=== PATIENT | male | born 1985 | race Caucasian/White ===

== ENCOUNTER → 2017-09-01 14:31 | Outpatient (CLI) | payer BC, SELFPAY ==
--- NOTE | 2017-09-01 | DI.RAD.S_ITS ---
PROCEDURE: XR KNEE LT 3V INDICATIONS: LEFT KNEE PAIN TECHNIQUE: 3 views of the knee were acquired. COMPARISON: None. FINDINGS: Bones: No fractures or dislocations. No suspicious bony lesions. Soft tissues: No joint effusion. No suspicious soft tissue calcifications. IMPRESSION: Normal knee Dictated by: Federcio Benson M.D. on 09/01/2017 at 14:55 Approved by: Federico Benson M.D. on 09/01/2017 at 14:56
== END ==
PROVIDERS: Visit Provider Family Medicine
DX: M25.562 Pain in left knee (principal)
CPT/HCPCS: 73562

== ENCOUNTER → 2018-07-14 13:38 | Outpatient (CLI) | payer BC, SELFPAY ==
[2018-07-14 14:10] LABS: Alanine Aminotransferase 34 IU/L (21-72); Albumin 4.5 g/dL (3.5-5.0); Albumin Globulin Ratio 1.5 (1.0-2.8); Alkaline Phosphatase 55 U/L (38-126); Amylase 59 U/L (30-110); Aspartate Aminotransferase 28 IU/L (17-59); Bilirubin Total 0.6 mg/dL (0.2-1.3); Blood Urea Nitrogen 11 mg/dL (9-20); Calcium 9.1 mg/dL (8.4-10.2); Carbon Dioxide 25 mmol/L (22-32); Chloride 104 mmol/L (98-107); Estimated Glomerular Filt Rate > 60.0 mL/min (>60); Glucose 113 mg/dL (70-100); HEMOLYSIS < 15 (0-50); Lipase 107 U/L (23-300); Potassium 3.8 mmol/L (3.4-5.1); Sodium 140 mmol/L (137-145); Total Protein 7.5 g/dL (6.3-8.2)
[2018-07-14 14:11] LABS: C-Reactive Protein Quant < 0.5 mg/dL (<1.0)
[2018-07-14 14:20] LABS: Add Manual Diff / Slide Review NO; Basophils Absolute Auto 0 /uL (0-100); Basophils Percent Auto 0.7 % (0-2); Eosinophils Absolute Auto 100 /uL (0-450); Hematocrit 43.2 % (41-53); Lymphocytes Absolute Auto 1700 /uL (1100-4500); Mean Corpuscular HGB Conc 34.6 % (30-36); Mean Corpuscular Hemoglobin 29.2 PG (26-34); Mean Corpuscular Volume 84.3 fL (80-100); Monocytes Absolute Auto 400 /uL (0-900); Monocytes Percent Auto 5.4 % (3-14); Neutrophils Absolute Auto 4400 /uL (1500-7000); Neutrophils Percent Auto 66.9 % (50-75); Red Blood Cell Count 5.13 X10^6/uL (4.5-5.9); Red Cell Distribution Width 13.3 % (11.6-14.8); White Blood Cell Count 6.6 X10^3/uL (4.5-11.0)
[2018-07-14 14:48] LABS: Platelet Count 156 X10^3/uL (150-400)
[2018-07-14 14:50] LABS: Erythrocyte Sedimentation Rate 2 MM/HR (0-15)
== END ==
PROVIDERS: PCP Family Medicine; Visit Provider Family Medicine
DX: R10.9 Unspecified abdominal pain (principal)
CPT/HCPCS: 36415; 80053; 82150; 83690; 85025; 85651; 86140

== ENCOUNTER 2018-07-16 02:49 | Emergency (ER) | payer BC, SELFPAY ==
[2018-07-16 02:58] VITALS: BP 151/106; PULSE 56; RESP 18; TEMP 36.1; O2SAT 100
[2018-07-16 03:00] VITALS: BP 151/106; PULSE 61; RESP 18; TEMP 36.1; O2SAT 100; BMI 30.3
--- NOTE | 2018-07-16 03:31 | DI.CT.S_ITS ---
PROCEDURE: CT ABDOMEN PELVIS W CON INDICATIONS: abdominal pain TECHNIQUE: After the administration of intravenous contrast, 5 mm thick sections acquired from the diaphragm to the symphysis. 5 mm coronal and sagittal reformats were acquired. For radiation dose reduction, the following was used: automated exposure control, adjustment of mA and/or kV according to patient size. COMPARISON: [facility], CT, CT ABD PELVIS W CON, 01/10/2015, 13:30. FINDINGS: Image quality: Excellent. ABDOMEN: Lung bases: Lung bases are clear. Heart size is normal. Solid organs: There are a few small scattered subcentimeter hypodensities within the right hepatic lobe, new since the prior examination. Liver is otherwise normal in size and enhancement. Gallbladder is within normal limits. Biliary system is non dilated. Pancreas enhances normally. Spleen is normal in size and enhancement. No adrenal nodules. Kidneys demonstrate normal size and enhancement, without hydronephrosis. Peritoneum and bowel: There is mild thickening of a short segment of proximal transverse colon. Bowel loops demonstrate otherwise normal wall thickness and caliber. No free fluid or air. Normal appendix. Nodes and vessels: No retroperitoneal or mesenteric adenopathy by size criteria. Aorta and inferior vena cava are normal in size. Miscellaneous: No ventral hernias. PELVIS: Genitourinary: Bladder wall thickness is normal. Miscellaneous: No inguinal hernias or adenopathy. Bones: No suspicious bony lesions. No vertebral body compression fractures. IMPRESSION: 1. Limited examination of the bowel secondary to lack of oral contrast. 2. Possible thickening of a short segment proximal transverse colon. This could be further assessed with colonoscopy, if clinically indicated. 3. New small subcentimeter hypodensities within the hepatic parenchyma, which could be further assessed with ultrasound if clinically indicated. 4. Normal appendix. 5. Concordant with preliminary interpretation. Dictated by: Oziel Alfredo M.D. on 07/16/2018 at 8:08 Approved by: Oziel Alfredo M.D. on 07/16/2018 at 8:12
--- NOTE | 2018-07-16 03:34 | ED_ITS ---
HPI - Abdominal Pain General Chief Complaint: Abdominal Pain Stated Complaint: extreme stomach pain, bloated, back pain 3 days Time Seen by Provider: 07/16/18 03:02 Source: patient Mode of arrival: ambulatory Limitations: no limitations History of Present Illness HPI narrative: Patient presents the emergency department complaining of periumbilical abdominal pain that has been worsening for the last 4 days. Patient states initially, he had mild pain and some soft stools, but that the pain has persisted, and seems worse over the last day. Patient states his pain is about a 7/10. Nothing makes better. Patient states he is also having watery diarrhea and nausea. He states he has not vomited yet. He has been able to eat somewhat, but his appetite has been decreased. He states that if he eats simple starchy things, like saltines or rice crackers, this does not seem to bother his stomach. However, any other food makes his pain worse. Patient states that initially, ibuprofen was helping, but when he saw his doctor the day before yesterday, his doctor said not to take ibuprofen because it may irritate his stomach. The patient states he stopped taking the ibuprofen, and the pain seemed to get worse. He tried taking omeprazole, but this did not help. Patient states that he has a history of IBS, but otherwise, has no other chronic abdominal conditions. He states he had an umbilical hernia years ago. He has not had his gallbladder or appendix removed. He has no history of ulcers or other bowel conditions. Patient denies any urinary complaints. he denies any fevers or headache. No chills. No chest pain shortness of breath or cough. Patient states he is otherwise healthy. No recent travel. No camping. No sick contacts. No suspicious food. No other complaints at this time. No recent antibiotics within the last month. Related Data Home Medications Medication Instructions Recorded Confirmed hydrocodone-acetaminophen 0 tab PO Q6HP PRN 07/16/18 07/16/18 Previous Rx's Medication Instructions Recorded cyclobenzaprine 10 mg PO TIDP PRN #14 tab 11/17/15 ibuprofen 600 mg PO Q8HP PRN #20 tab 11/17/15 ondansetron 4 mg PO QID PRN #14 tab 07/16/18 oxycodone-acetaminophen 1 tab PO Q4-6H PRN #7 tab 04/01/19 Allergies Allergy/AdvReac Type Severity Reaction Status Date / Time amoxicillin [AMOXICILLIN] Allergy Mild RASH Verified 07/16/18 03:22 cephalexin [CEPHALEXIN] Allergy Mild RASH Verified 07/16/18 03:22 Penicillins [PENICILLINS] Allergy Mild Verified 07/16/18 03:22 Sulfa (Sulfonamide Allergy Mild Verified 07/16/18 03:22 Antibiotics) [SULFA (SULFONAMIDE ANTIBIOTICS)] Review of Systems Constitutional Denies chills, Denies fever(s), Denies lethargy and Denies weakness Eyes Denies change in vision, Denies eye discharge, Denies irritation and Denies loss of vision ENT Ears, Nose, Mouth, and Throat: Denies change in voice, Denies neck pain and Denies sore throat Cardiovascular Denies chest pain, Denies irregular heart rhythm, Denies lightheadedness, Denies palpitations, Denies dyspnea, Denies dyspnea on exertion and Denies orthopnea Respiratory Denies cough, Denies dyspnea, Denies dyspnea on exertion and Denies wheezing Gastrointestinal Gastrointestinal: Reports abdominal pain, Reports diarrhea, Reports nausea and Denies vomiting Genitourinary Denies hematuria, Denies flank pain, Denies urinary incontinence and Denies urinary urgency Musculoskeletal Denies neck pain Integumentary/Breasts Denies pruritus, Denies erythema, Denies rash and Denies wounds Neurologic Denies confusion, Denies loss of vision and Denies weakness Psychiatric Denies anxiety, Denies confusion, Denies depression, Denies homicidal ideation and Denies suicidal ideation Endocrine Denies palpitations Hematologic/Lymphatic Denies easy bruising Allergic/Immunologic Denies wheezing [facility] Medical History Healthy adult (Acute) Surgical History Status post tonsillectomy and adenoidectomy Social History Smoking Status: Never smoker Social History Smoking Status: Never smoker Exam Initial Vital Signs Initial Vital Signs: Vital Signs Temperature 97.0 F L 07/16/18 02:58 Pulse Rate 56 L 07/16/18 02:58 Respiratory Rate 18 07/16/18 02:58 Blood Pressure 151/106 H 07/16/18 02:58 Pulse Oximetry 100 07/16/18 02:58 Const General: cooperative and well developed Nutritional Appearance: well nourished Orientation: alert, awake, oriented x3 and not confused [facility] Head: normocephalic and atraumatic Ears: external ears normal Nose: external nose normal and No nasal discharge Face and sinus: face symmetric and No dry mucous membranes Mouth: oral mucosae normal and moist mucous membranes Teeth and gingiva: dentition normal Eyes General: appearance normal, both eyes and all related structures Eyelids: eyelids normal Conjunctivae: conjunctivae normal Sclera: sclerae normal Pupils: PERRL EOM: EOM intact bilaterally Neck Neck: normal visual inspection, trachea midline, No lymphadenopathy, No midline deformity and No JVD Lymphatic: No lymphedema Chest Chest: normal inspection of the chest Resp Effort & Inspection: normal respiratory effort, able to speak in complete sentences, no respiratory distress and no use of accessory muscles Auscultation: clear to auscultation bilaterally, no rales, no rhonchi and no wheezes Cardio Rate: regular rate Rhythm: regular rhythm Heart Sounds: no click, no gallops, no murmurs and no rubs Pulses: normal peripheral pulses GI Inspection: non-distended Palpation: soft, no hepatosplenomegaly, No guarding, No pulsatile mass and tender Auscultation: normal bowel sounds Other: Patient has diffuse abdominal tenderness, mildly worse in the lower abdo men than the upper, with a focus of tenderness in the superior epigastric area. No flank tenderness. pain is not worse on 1 side than the other. Back/Spine/Pelvis Back: No CVA tenderness Cervical Spine: cervical ROM normal and No pain with cervical ROM Thoracic/Lumbar Spine: thoracic and lumbar spine normal to inspection Skin General: no rashes or lesions noted, No jaundice and No petechiae Neuro General: alert, oriented x3, gait normal and no focal motor deficits Speech: speech normal Extrem General: full ROM, no clubbing, cyanosis or edema, no pedal edema and no calf tenderness Psych Appearance: well kempt Mental Status: mental status grossly normal Attitude: cooperative Thought Content: normal and suicidality Judgment: judgment good Course Course Narrative: I reviewed the patient's labs from 2 days ago, which revealed a normal white blood cell count and normal lipase. Labs overall were unremarkable. the patient was calm, but did appear somewhat uncomfortable, and I treated him symptomatically with IV fluids, Zofran, and Dilaudid. I repeated his CBC and lipase, and obtained a CT scan of the abdomen and pelvis. CBC continued to show a normal white blood cell count, and lipase also was unchanged from patient's most recent value. His CT scan showed a very focal area which probably represented a small area of colitis, but was otherwise unremarkable. I discussed these findings with the patient and his mother, who had accompanied him. At this point, the patient's symptoms are most likely viral in nature, but with his underlying IBS, he may be prone to more severe symptoms. We have dis cussed home management of the symptoms. Patient is stable for discharge home at this time. We have discussed the usual indications for return. Orders Ordered: Discontinued Medications Hydromorphone HCl (Dilaudid) 1 mg IV NOW ONE Stop: 07/16/18 03:33 Last Admin: 07/16/18 03:47 Dose: 1 mg Hydromorphone HCl (Dilaudid) 0.5 mg IV NOW ONE Stop: 07/16/18 05:27 Last Admin: 07/16/18 05:32 Dose: 0.5 mg Hydromorphone HCl (Dilaudid) 0.5 mg IV NOW ONE Stop: 07/16/18 05:29 Last Admin: 07/16/18 05:31 Dose: Not Given Sodium Chloride (Normal Saline 0.9%) 1,000 mls @ 1,000 mls/hr IV BOLUS ONE Stop: 07/16/18 04:30 Last Infusion: 07/16/18 05:05 Dose: 0 mls/hr Admin: 07/16/18 03:46 Dose: 1,000 mls/hr Ondansetron HCl (Zofran) 4 mg IV NOW ONE Stop: 07/16/18 03:32 Last Admin: 07/16/18 03:47 Dose: 4 mg Ondansetron HCl (Zofran) 4 mg IV NOW ONE Stop: 07/16/18 05:27 Last Admin: 07/16/18 05:32 Dose: 4 mg Ondansetron HCl (Zofran) 4 mg IV NOW ONE Stop: 07/16/18 05:29 Last Admin: 07/16/18 05:31 Dose: Not Given Pantoprazole Sodium (Protonix) 40 mg IV NOW ONE Stop: 07/16/18 03:33 Last Admin: 07/16/18 03:47 Dose: 40 mg Vital Signs - 8 hr 07/16/18 02:58 07/16/18 03:00 Temperature 97.0 F L 97.0 F L Pulse Rate 56 L 61 Respiratory Rate 18 18 Blood Pressure 151/106 H Blood Pressure [Left Arm] 151/106 H Pulse Oximetry 100 100 MDM - Abdominal Pain Medical Records Attestation: I reviewed the patient's medical records. Lab Data Attestation: I reviewed the patient's lab results. Result diagrams: 07/16/18 03:03 Lab Results 07/16/18 07/16/18 Range/Units 03:03 03:03 WBC 7.1 (4.5-11.0) X10^3/uL RBC 5.32 (4.5-5.9) X10^6/uL Hgb 15.3 (13.5-17.5) g/dL Hct 45.6 (41-53) % MCV 85.8 (80-100) fL MCH 28.8 (26-34) PG MCHC 33.6 (30-36) % RDW 13.1 (11.6-14.8) % Plt Count 169 (150-400) X10^3/uL Neut % (Auto) 61.9 (50-75) % Lymph % (Auto) 29.0 (25-40) % [place] % (Auto) 7.1 (3-14) % Eos % (Auto) 1.4 L (2-4) % Baso % (Auto) 0.6 (0-2) % Neut # (Auto) 4400 (8331-5370) /uL Lymph # (Auto) 2100 (2525-1481) /uL [place] # (Auto) 500 (0-900) /uL Eos # (Auto) 100 (0-450) /uL Baso # (Auto) 0 (0-100) /uL Lipase 107 (23-300) U/L Point of care testing: Urine Dip Bedside Urine Glucose Negative Bedside Urine Bilirubin - Negative Bedside Urine Ketone - Negative Urine Specific [place] 1.025 Bedside Urine Occult Blood - Negative Bedside Urine pH 6.0 Bedside Urine Protein - Negative Bedside Urine Urobilinogen +/- 1mg Bedside Urine Nitrite - Negative Bedside Urine Leukocytes - Negative Esterase Discharge Plan Departure Patient Disposition: Home Clinical Impression: Gastroenteritis Abdominal pain Qualifiers: Abdominal location: lower abdomen, unspecified Qualified Code(s): R10.30 - Lower abdominal pain, unspecified Discharge Date/Time: 07/16/18 05:52 Interventions: ED Discharge Assessment Last Done: 07/16/18 06:06 Instructions: DI for Viral Gastroenteritis -- Adult, DI for Abdominal Pain- Adult Activity Restrictions/Additional Instructions: Your labs continued to look good tonight. Your CT scan shows a very small, focal area of inflammation in your large intestine, which likely represents some irritation from the viral infection. This illness will have to run its course, which it will do. You may follow up with your doctor if you have any further issues after the primary illness is over. You may take medication for nausea, as prescribed, to help with the symptoms. Prescriptions: New ondansetron 4 mg tablet,disintegrating 4 mg PO QID PRN (Reason: nausea and vomiting) Qty: 14 RF: 0 oxycodone-acetaminophen 5-325 mg tablet 1 tab PO Q4-6H PRN (Reason: pain) Qty: 7 RF: 0 No Action cyclobenzaprine 10 MG tablet 10 mg PO TIDP PRNQty: 14 RF: 0 ibuprofen 600 MG tablet 600 mg PO Q8HP PRNQty: 20 RF: 0 hydrocodone-acetaminophen 5 MG/325 MG tablet PO Q6HP PRN (Reason: Pain (Scale Score 1-3)) RF: 0 Referrals: Gavin Boateng MD [Primary Care Provider] -
[2018-07-16 03:37] LABS: Add Manual Diff / Slide Review NO; Basophils Absolute Auto 0 /uL (0-100); Basophils Percent Auto 0.6 % (0-2); Eosinophils Absolute Auto 100 /uL (0-450); Eosinophils Percent Auto 1.4 % (2-4); Hematocrit 45.6 % (41-53); Hemoglobin 15.3 g/dL (13.5-17.5); Lymphocytes Absolute Auto 2100 /uL (1100-4500); Mean Corpuscular HGB Conc 33.6 % (30-36); Mean Corpuscular Hemoglobin 28.8 PG (26-34); Mean Corpuscular Volume 85.8 fL (80-100); Monocytes Absolute Auto 500 /uL (0-900); Monocytes Percent Auto 7.1 % (3-14); Neutrophils Absolute Auto 4400 /uL (1500-7000); Neutrophils Percent Auto 61.9 % (50-75); Platelet Count 169 X10^3/uL (150-400); Red Blood Cell Count 5.32 X10^6/uL (4.5-5.9); Red Cell Distribution Width 13.1 % (11.6-14.8); White Blood Cell Count 7.1 X10^3/uL (4.5-11.0)
[2018-07-16 03:42] LABS: Lipase 107 U/L (23-300)
[2018-07-16] MEDS: SODIUM CHLORIDE 0.9% 1,000 ML 1000 ML IV (03:46)
[2018-07-16] MEDS: HYDROMORPHONE 1 MG INJ IV (03:47)
[2018-07-16] MEDS: PANTOPRAZOLE 40 MG VIAL IV (03:47)
[2018-07-16] MEDS: ONDANSETRON 4 MG/2 ML INJ IV ×2 (03:47→05:32)
[2018-07-16 04:32] VITALS: BP 115/55; PULSE 56; RESP 18; O2SAT 98
[2018-07-16] MEDS: HYDROMORPHONE 1 MG INJ 0.5 MG IV (05:32)
[2018-07-16 05:39] VITALS: BP 127/73; PULSE 56; RESP 16; O2SAT 100
== END 2018-07-16 05:52 | disposition home or self-care (01) ==
PROVIDERS: Emergency Provider Emergency Medicine; PCP Family Medicine
DX: K52.9 Noninfective gastroenteritis and colitis, unspecified (principal)
CPT/HCPCS: 36591; 74177; 81003; 83690; 85025; 96361; 96374; 96375; 96376; 99283; 99284; C9113; J1170; J2405; Q9967

== ENCOUNTER → 2018-07-18 08:17 | Outpatient (CLI) | payer BC, SELFPAY ==
--- NOTE | 2018-07-18 | DI.US.S_ITS ---
PROCEDURE: US ABDOMEN COMPLETE INDICATIONS: LIVER MASS TECHNIQUE: Real-time scanning was performed of the abdominal and retroperitoneal organs, with image documentation. COMPARISON: [facility], CT, CT ABDOMEN PELVIS W CON, 07/16/2018, 4:07. FINDINGS: Liver: Echogenic focal masses seen within the anterior right hepatic lobe measured 1.4 x 1.0 x 1.1 cm and 1.6 x 0.8 x 0.9 cm. No definite internal vascularity is seen Gallbladder: Unremarkable. No sonographic Kohli sign Biliary ducts: Intrahepatic bile ducts are non-dilated. Extrahepatic bile duct caliber measures 4-5 mm. Normal is 6-7 mm or less in diameter, or 10 mm or less post-cholecystectomy. Pancreas: Not well seen sonographically due to shadowing bowel gas Spleen: Spleen measures 11.1 cm. There is heterogeneous echotexture however no discrete splenic lesion. Kidneys: Kidneys are normal in size and echotexture. Right kidney measures 9.6 cm long; left kidney measures 10.8 cm long. No hydronephrosis or nephrolithiasis. No solid masses. Aorta: Visualized aorta is normal in caliber at less than 3 cm. Iliacs: Proximal common iliac arteries are normal in caliber at less than 2.5 cm. IVC: Intrahepatic inferior vena cava is patent. Miscellaneous: No free abdominal fluid. IMPRESSION: Focal echogenic regions seen within the right hepatic lobe. Findings could represent areas of focal fatty infiltration or poorly-defined hemangiomas based on the echogenic characteristics. Although, the findings are still nonspecific and recommend continued surveillance with 6 month interval repeat ultrasound to document long-term stability (for least 2 years) and exclude malignant possibilities. If there is sufficient clinical suspicion, additional evaluation with dedicated hepatic protocol MRI with and without contrast could be considered. Dictated by: Guille Vela M.D. on 07/18/2018 at 9:57 Approved by: Guille Vela M.D. on 07/18/2018 at 10:04
== END ==
PROVIDERS: PCP Family Medicine; Visit Provider Family Medicine
DX: R16.0 Hepatomegaly, not elsewhere classified (principal)
CPT/HCPCS: 76700

== ENCOUNTER → 2019-06-12 14:28 | Outpatient (CLI) | payer BC, SELFPAY ==
--- NOTE | 2019-06-12 | DI.US.S_ITS ---
PROCEDURE: US ABDOMEN COMPLETE INDICATIONS: LIVER MASS TECHNIQUE: Real-time scanning was performed of the abdominal and retroperitoneal organs, with image documentation. COMPARISON: [facility], CT, CT ABDOMEN PELVIS W CON, 07/16/2018, 4:07. [facility], US, US ABDOMEN COMPLETE, 07/18/2018, 8:24. FINDINGS: Liver: Liver is normal in size and unchanged in echotexture. There has been a previously identified hyperechoic focus within the right hepatic lobe anteriorly with a second immediately adjacent similar hyperechoic focus, again seen with reference to the prior study from 07/18/18. These measure 1.5 x 1.2 x 0.8 cm anteriorly and 1.5 x 0.7 x 1.2 cm more posteriorly. By appearance these most likely are hemangiomas. Gallbladder: The gallbladder appears normal Biliary ducts: Intrahepatic bile ducts are non-dilated. Extrahepatic bile duct caliber measures 3.6.0 mm. Normal is 6-7 mm or less in diameter, or 10 mm or less post-cholecystectomy. Pancreas: Visualized portions of the pancreas are sonographically normal. Spleen: Spleen is normal in size and homogeneous in echotexture. Kidneys: Kidneys are normal in size and echotexture. Right kidney measures 10.0 cm long; left kidney measures 9.5 x 10.0 cmr nephrolithiasis. No solid masses. Aorta: Visualized aorta is normal in caliber at less than 3 cm. Iliacs: Proximal common iliac arteries are normal in caliber at less than 2.5 cm. IVC: Intrahepatic inferior vena cava is patent. Miscellaneous: No free abdominal fluid. IMPRESSION: 2 adjacent hyperechoic foci within the liver parenchyma near the gallbladder fossa margin are again seen, unchanged in size or morphology from 07/18/18. These presumably represent hemangiomas and given the absence of international exchange coordinator time no additional followup would appear necessary. Dictated by: Fidencio Fall M.D. on 06/12/2019 at 15:59 Approved by: Fidencio Fall M.D. on 06/12/2019 at 16:04
== END ==
PROVIDERS: PCP Family Medicine; Referring Provider Family Medicine; Visit Provider Family Medicine
DX: R16.0 Hepatomegaly, not elsewhere classified (principal)
CPT/HCPCS: 76700

== ENCOUNTER → 2021-10-19 12:24 | Outpatient (ROUT) | payer SELFPAY ==
[2021-10-19 13:39] LABS: COVID-19 CEPHEID PCR (VTM/NP) Negative (Negative)
== END ==
PROVIDERS: PCP Family Medicine; Visit Provider Family Medicine
DX: J02.9 Acute pharyngitis, unspecified (principal); Z20.822 Contact with and (suspected) exposure to COVID-19
CPT/HCPCS: U0003; U0005

== ENCOUNTER 2022-07-30 20:03 | Emergency (ER) | payer OTHER, SELFPAY ==
[2022-07-30 20:14] VITALS: BP 131/80; PULSE 63; RESP 20; TEMP 36.7; O2SAT 99; BMI 31.9
--- NOTE | 2022-07-30 20:34 | DI.CT.S_ITS ---
PROCEDURE: CT ANGIO CHEST ABDOMEN PELVIS INDICATIONS: abd pain pericumbilical, RLQ, passed out x 2 last night TECHNIQUE: Precontrast 5 mm thick sections acquired from the lung apices to the iliac crests. After the administration of intravenous contrast, 2.5 mm thick sections again acquired from the lung apices to the iliac crests. Maximum intensity projection (MIP) oblique sagittal and coronal reformats were then acquired. For radiation dose reduction, the following was used: automated exposure control. COMPARISON: None. FINDINGS: Image quality: Excellent. AORTA: Intramural hematoma: Absent Maximum hematoma thickness: Not applicable. Focal contrast enhancement: Intramural blood pool (< 2 mm neck or imperceptible communication with aortic lumen): Absent . Ulcer-like projection (broad communication with aortic lumen > 3 mm): Absent . Dissection: Absent Viktor classification: Not applicable Maximum aortic diameter: Normal caliber Periaortic hematoma: Absent . CHEST: Lungs and pleura: No acute airspace opacities. No pleural effusions or pneumothorax. Central and peripheral airways are patent and normal in caliber. No pulmonary embolus found. Mediastinum: Heart size is normal. No pericardial effusion. No mediastinal or hilar adenopathy by size criteria. Central pulmonary arteries are normal in size. Esophagus is normal in caliber. No hiatal hernias. Bones and chest wall: No axillary adenopathy by size criteria. Thyroid gland normal . No suspicious bony lesions. No vertebral body compression fractures. ABDOMEN: Vasculature: Celiac trunk and mesenteric arteries are patent. Renal arteries are also patent. Solid organs: Liver is normal in size and enhancement. Gallbladder normal . Biliary system is non dilated. Pancreas enhances normally. Spleen is normal in size and enhancement. No adrenal nodules. Both kidneys are normal in size and enhancement, without hydronephrosis. Peritoneum and bowel: No free fluid or air. Bowel loops are normal in caliber and wall thickness. Nodes and vessels: No retroperitoneal or mesenteric adenopathy by size criteria. Inferior vena cava is normal in morphology. Miscellaneous: No ventral hernias. PELVIS: Genitourinary: Bladder wall thickness is normal. Miscellaneous: No inguinal hernias or adenopathy. No ventral hernias. Normal appendix found right lower quadrant. Bones: No suspicious bony lesions. No vertebral body compression fractures. IMPRESSION: No aneurysm or dissection found, normal aortic caliber and enhancement. No evidence of pulmonary embolus. Normal appendix found. Dictated by: Fidencio Fall M.D. on 07/30/2022 at 21:42 Approved by: Fidencio Fall M.D. on 07/30/2022 at 21:46
--- NOTE | 2022-07-30 20:37 | ED.ABDPAIN ---
HPI - Abdominal Pain General Chief Complaint: Abdominal Pain Stated Complaint: faint, SOB-uncon. last night, abd pain Time Seen by Provider: 07/30/22 20:27 Source: patient and family Mode of arrival: Wheelchair Limitations: no limitations History of Present Illness HPI narrative: This is a 37-year-old male with history of vasectomy, umbilical hernia repair and colonoscopy x2 who presents with abdominal pain. Patient states pain has been present starting yesterday around midnight. He states it is umbilical and then radiates little bit to the right lower quadrant. He states he felt feverish and chilled. He is had nausea and vomiting. He is had quite a bit of watery diarrhea in the last 12-24 hours. Patient states no black or bloody stools. No testicular pain. No dysuria, urgency or frequency. He states he is not having any back or flank pain. It all seems to be in the front of his abdomen. He denies any bruising or skin changes. Pain does not radiate down his legs. No numbness, tingling or weakness. Notes that he passed out last night. He states that he was throwing up in the bathroom he remembers being in the proper position to throw up and then his waking him up on the floor. states he was in the bathroom for about 2 hours when she went to go find. Patient notes he has had abdominal pain past, he states it is felt somewhat similar but not quite as intense. He does not normally have vomiting or diarrhea with it. Has had rectal bleeding in the past and had colonoscopy x2 which were both negative and was told he might have IBS. He does not take any daily medicines. Patient has allergies to antibiotics including penicillin and sulfa which he describes as swelling and rash. He denies tobacco, occasional alcohol, no illicit. Dr. Boateng is his primary care. Related Data Home Medications Medication Instructions Recorded Confirmed hydrocodone 5 mg-acetaminophen 325 0 tab PO Q6HP PRN Pain (Scale 07/16/18 07/16/18 mg tablet Score 1-3) Previous Rx's Medication Instructions Recorded cyclobenzaprine 10 mg tablet 10 mg PO TIDP PRN #14 tabs 11/17/15 ibuprofen 600 mg tablet 600 mg PO Q8HP PRN #20 tabs 11/17/15 ondansetron 4 mg disintegrating 4 mg PO QID PRN nausea and 07/16/18 tablet vomiting #14 tabs oxycodone-acetaminophen 5 mg-325 1 tab PO Q4-6H PRN pain #7 tabs 07/16/18 mg tablet Allergies Allergy/AdvReac Type Severity Reaction Status Date / Time amoxicillin [AMOXICILLIN] Allergy Mild RASH Verified 07/16/18 03:22 cephalexin [CEPHALEXIN] Allergy Mild RASH Verified 07/16/18 03:22 Penicillins [PENICILLINS] Allergy Mild Verified 07/16/18 03:22 Sulfa (Sulfonamide Allergy Mild Verified 07/16/18 03:22 Antibiotics) [SULFA (SULFONAMIDE ANTIBIOTICS)] Review of Systems Review of Systems ROS Unobtainable: All systems reviewed & are unremarkable except as noted in HPI and below Patient History Medical History (Updated 07/30/22 @ 23:42 by Vashti Maddox DO) Healthy adult Surgical History Status post tonsillectomy and adenoidectomy Social History Smoking Status: Never smoker Smoking Status: Never smoker alcohol intake frequency: holidays/special occasions only Substance Use Type: does not use Exam Narrative Exam Narrative: GENERAL: Alert and oriented x three, obese male in moderate distress. HEENT: Head normocephalic, atraumatic, EOMI, pupils reactive, face symmetric, moist mucous membranes NECK: Supple, full range of motion CARDIOVASCULAR: Regular rate and rhythm without murmurs, rubs or gallops. RESPIRATORY: Breath sounds equal bilaterally, no wheezes rales or rhonchi. No tachypnea or accessory muscle use. ABDOMEN: Soft, positive for periumbilical and right lower quadrant tenderness. Hyperactive bowel sounds all 4 quadrants. No guarding or rebound, rigidity, no mass, no bruit or pulsatile mass. : No CVA tenderness EXTREMITIES: Normal range of motion, no clubbing or edema. Neurovascularly intact. Patient has 2+ posterior tibialis bilaterally, cap refill less than 2 seconds bilaterally. NEUROLOGICAL: Cranial nerves II through XII grossly intact. Moving all extremities SKIN: Warm, dry, no petechiae, no rashes or lesions, no ecchymosis. Initial Vital Signs Initial Vital Signs: Vital Signs Temperature 98.0 F 07/30/22 20:14 Pulse Rate 63 07/30/22 20:14 Respiratory Rate 20 07/30/22 20:14 Blood Pressure 131/80 07/30/22 20:14 Pulse Oximetry 99 07/30/22 20:14 Oxygen Delivery Method Room Air 07/30/22 20:14 Course Orders Ordered: ED Orders 07/30/22 20:15 Complete Blood Count AUTO DIFF Stat Comprehensive Metabolic Panel Stat Lactate (Lactic Acid) Stat Lipase Stat Troponin & CK Cardiac Panel Stat 07/30/22 20:34 CT angio chest abdomen pelvis Stat EKG-12 Lead Stat 07/30/22 21:35 Urinalysis and Microscopic Stat 07/30/22 22:13 GI Panel (Film Array) Stat Discontinued Medications Hydromorphone HCl (Hydromorphone 0.5 Mg Inj) 0.5 mg IV NOW ONE Stop: 07/30/22 22:16 Last Admin: 07/30/22 22:19 Dose: 0.5 mg Documented By: JOHN Sodium Chloride (Normal Saline 0.9%) 1,000 mls @ 1,000 mls/hr IV BOLUS ONE Stop: 07/30/22 21:35 Last Infusion: 07/30/22 22:08 Dose: 0 mls/hr Documented By: Admin: 07/30/22 21:14 Dose: 1,000 mls/hr Documented By: JOHN Sodium Chloride (Normal Saline 0.9%) 1,000 mls @ 1,000 mls/hr IV BOLUS ONE Stop: 07/30/22 23:14 Last Infusion: 07/30/22 22:48 Dose: 0 mls/hr Documented By: Admin: 07/30/22 22:20 Dose: 1,000 mls/hr Documented By: JOHN Morphine Sulfate (Morphine 4 Mg/Ml Inj) 4 mg IV NOW ONE Stop: 07/30/22 20:35 Last Admin: 07/30/22 20:43 Dose: 4 mg Documented By: JOHN Morphine Sulfate (Morphine 4 Mg/Ml Inj) 4 mg IV NOW ONE Stop: 07/30/22 22:36 Last Admin: 07/30/22 22:44 Dose: 4 mg Documented By: JOHN Ondansetron HCl (Ondansetron 4 Mg/2 Ml Inj) 4 mg IV NOW PRN PRN Reason: Nausea And Vomiting Ondansetron HCl (Ondansetron 4 Mg/2 Ml Inj) 4 mg IV NOW ONE Stop: 07/30/22 20:35 Last Admin: 07/30/22 20:44 Dose: 4 mg Documented By: JOHN Ondansetron HCl (Ondansetron 4 Mg Odt Prepack) 1 bottle MISC SEEINSTR ONE Stop: 07/30/22 23:59 Last Admin: 07/31/22 00:07 Dose: 1 bottle Documented By: JOHN Oxycodone/Acetaminophen (Oxycodone/Apap 5/325 Prepack) 1 bottle MISC SEEINSTR ONE Stop: 07/30/22 23:59 Last Admin: 07/31/22 00:07 Dose: 1 bottle Documented By: JOHN Vital Signs Vital signs: Vital Signs - 8 hr 07/30/22 20:14 07/31/22 00:14 Temperature 98.0 F Pulse Rate 63 59 L Respiratory Rate 20 18 Blood Pressure 131/80 126/76 Pulse Oximetry 99 96 Oxygen Delivery Method Room Air Room Air MDM - Abdominal Pain Lab Data 07/30/22 20:15 07/30/22 20:15 Labs: Lab Results 07/30/22 07/30/22 07/30/22 Range/Units 20:15 20:15 20:15 WBC 12.2 H (4.5-11.0) X10^3/uL RBC 5.70 (4.5-5.9) X10^6/uL Hgb 16.6 (13.5-17.5) g/dL Hct 47.9 (41-53) % MCV 84.1 (80-100) fL MCH 29.0 (26-34) PG MCHC 34.5 (30-36) % RDW 13.3 (11.6-14.8) % Plt Count 183 (150-400) X10^3/uL Neut % (Auto) 86.0 H (50-75) % Lymph % (Auto) 8.2 L (25-40) % Chester % (Auto) 5.2 (3-14) % Eos % (Auto) 0.1 L (2-4) % Baso % (Auto) 0.5 (0-2) % Neut # (Auto) 58374 H (1333-0734) /uL Lymph # (Auto) 1000 L (9973-6048) /uL Chester # (Auto) 600 (0-900) /uL Eos # (Auto) 0 (0-450) /uL Baso # (Auto) 100 (0-100) /uL Sodium 139 (137-145) mmol/L Potassium 3.6 (3.4-5.1) mmol/L Chloride 101 (98-107) mmol/L Carbon Dioxide 27 (22-32) mmol/L BUN 14 (9-20) mg/dL Creatinine 1.24 (0.66-1.25) mg/dL Estimated GFR > 60 (>60) mL/min BUN/Creatinine Ratio 11.3 (6-22) Glucose 110 H (70-100) mg/dL Lactate (0.7-2.1) mmol/L Calcium 9.6 (8.4-10.2) mg/dL Total Bilirubin 1.2 (0.2-1.3) mg/dL AST 32 (17-59) IU/L ALT 37 (<50) IU/L Alkaline Phosphatase 81 (38-126) U/L Total Creatine Kinase 153 (55-170) U/L CK-MB (CK-2) 0.28 (<2.37) ng/mL CK-MB (CK-2) Rel Index 0.2 L (1.5-5.0) % Troponin I < 0.012 (0.01-0.034) ng/mL Total Protein 8.7 H (6.3-8.2) g/dL Albumin 4.9 (3.5-5.0) g/dL Globulin 3.8 (1.7-4.1) g/dL Albumin/Globulin Ratio 1.3 (1.0-2.8) Lipase 83 (23-300) U/L Urine Color Urine Appearance Urine pH (4.5-8.0) Ur Specific Linville (1.000-1.035) Urine Protein (Negative) Urine Glucose (UA) (Negative) g/dL Urine Ketones (NEGATIVE) Urine Occult Blood (Negative) Urine Nitrate (Negative) Urine Bilirubin (NEGATIVE) Urine Urobilinogen (0.2) E.U./dL Ur Leukocyte Esterase (NEGATIVE) Urine RBC (0-5/HPF) Urine WBC (0-5/HPF) Urine Bacteria (None) Ur Culture Indicated? Micro UA Comment Stl C. cayetanensis PCR (Not Detect) Stool Rotavirus (PCR) (Not Detect) Stool Adenovirus (PCR) (Not Detect) Stool Astrovirus (PCR) (Not Detect) Stool Cryptosporidium PCR (Not Detect) Stl E.coli Shiga Tox PCR (Not Detect) St Sh/Enteroin Ecoli PCR (Not Detect) Stool E coli O157 PCR Stl Enterotoxigenic E PCR (Not Detect) Stool EPEC (PCR) (Not Detect) Stl E. histolytica PCR (Not Detect) Stool Giardia Lamblia PCR (Not Detect) Stool Sapovirus (PCR) (Not Detect) Stl P. shigelloides PCR (Not Detect) St Y.enterocolitica PCR (Not Detect) Stool Vibrio (PCR) (Not Detect) Stl Vibrio cholerae PCR (Not Detect) Stl Enteroaggr Ecoli PCR (Not Detect) Stl Norovirus GI/GII PCR (Not Detect) Campylobacter (PCR) (Not Detect) C. difficile Tox (PCR) (Not Detect) Salmonella (PCR) (Not Detect) 07/30/22 07/30/22 07/30/22 Range/Units 20:15 21:35 22:13 WBC (4.5-11.0) X10^3/uL RBC (4.5-5.9) X10^6/uL Hgb (13.5-17.5) g/dL Hct (41-53) % MCV (80-100) fL MCH (26-34) PG MCHC (30-36) % RDW (11.6-14.8) % Plt Count (150-400) X10^3/uL Neut % (Auto) (50-75) % Lymph % (Auto) (25-40) % Chester % (Auto) (3-14) % Eos % (Auto) (2-4) % Baso % (Auto) (0-2) % Neut # (Auto) (5240-9164) /uL Lymph # (Auto) (3769-2774) /uL Chester # (Auto) (0-900) /uL Eos # (Auto) (0-450) /uL Baso # (Auto) (0-100) /uL Sodium (137-145) mmol/L Potassium (3.4-5.1) mmol/L Chloride (98-107) mmol/L Carbon Dioxide (22-32) mmol/L BUN (9-20) mg/dL Creatinine (0.66-1.25) mg/dL Estimated GFR (>60) mL/min BUN/Creatinine Ratio (6-22) Glucose (70-100) mg/dL Lactate 1.5 (0.7-2.1) mmol/L Calcium (8.4-10.2) mg/dL Total Bilirubin (0.2-1.3) mg/dL AST (17-59) IU/L ALT (<50) IU/L Alkaline Phosphatase (38-126) U/L Total Creatine Kinase (55-170) U/L CK-MB (CK-2) (<2.37) ng/mL CK-MB (CK-2) Rel Index (1.5-5.0) % Troponin I (0.01-0.034) ng/mL Total Protein (6.3-8.2) g/dL Albumin (3.5-5.0) g/dL Globulin (1.7-4.1) g/dL Albumin/Globulin Ratio (1.0-2.8) Lipase (23-300) U/L Urine Color Yellow Urine Appearance Clear Urine pH 6.5 (4.5-8.0) Ur Specific Lin[place] 1.010 (1.000-1.035) Urine Protein Negative (Negative) Urine Glucose (UA) Negative (Negative) g/dL Urine Ketones Trace H (NEGATIVE) Urine Occult Blood Negative (Negative) Urine Nitrate Negative (Negative) Urine Bilirubin Negative (NEGATIVE) Urine Urobilinogen 0.2 (0.2) E.U./dL Ur Leukocyte Esterase Negative (NEGATIVE) Urine RBC None seen (0-5/HPF) Urine WBC None seen (0-5/HPF) Urine Bacteria None seen (None) Ur Culture Indicated? Cult not indicated Micro UA Comment Microscopic normal Stl C. cayetanensis PCR Not detected (Not Detect) Stool Rotavirus (PCR) Not detected (Not Detect) Stool Adenovirus (PCR) Not detected (Not Detect) Stool Astrovirus (PCR) Not detected (Not Detect) Stool Cryptosporidium PCR Not detected (Not Detect) Stl E.coli Shiga Tox PCR Not detected (Not Detect) St Sh/Enteroin Ecoli PCR Not detected (Not Detect) Stool E coli O157 PCR Not Reportable Stl Enterotoxigenic E PCR Not detected (Not Detect) Stool EPEC (PCR) Not detected (Not Detect) Stl E. histolytica PCR Not detected (Not Detect) Stool Giardia Lamblia PCR Not detected (Not Detect) Stool Sapovirus (PCR) Not detected (Not Detect) Stl P. shigelloides PCR Not detected (Not Detect) St Y.enterocolitica PCR Not detected (Not Detect) Stool Vibrio (PCR) Not detected (Not Detect) Stl Vibrio cholerae PCR Not detected (Not Detect) Stl Enteroaggr Ecoli PCR Not detected (Not Detect) Stl Norovirus GI/GII PCR Detected H (Not Detect) Campylobacter (PCR) Not detected (Not Detect) C. difficile Tox (PCR) Not detected (Not Detect) Salmonella (PCR) Not detected (Not Detect) Point of care testing: Urine Dip Bedside Urine Glucose Negative Bedside Urine Bilirubin - Negative Bedside Urine Ketone +/- 5 Urine Specific Linville 1.03 Bedside Urine Occult Blood - Negative Bedside Urine pH 6 Bedside Urine Protein +/- 15 Bedside Urine Urobilinogen - Negative Bedside Urine Nitrite - Negative Bedside Urine Leukocytes - Negative Esterase Imaging Data CT angio chest/abd/pelvis: Radiologist's Impression: Close Chest/Abdomen/Pelvis CTA (Signed) Fidencio Fall - 07/30/22 Launch?[place] [address] CT Scan Report Signed Patient: Rodrigo Diop MR#: [id number] : 1985 Acct:[id number] Age/Sex: 37 / M Date of Service: 07/30/22 Loc: ED Accession Number: [id number] ?? Procedure: CT angio chest abdomen pelvis Ordering Provider: Vashti Maddox D.O. PROCEDURE:? CT ANGIO CHEST ABDOMEN PELVIS ? INDICATIONS:? abd pain pericumbilical, RLQ, passed out x 2 last night ? TECHNIQUE:? Precontrast 5 mm thick sections acquired from the lung apices to the iliac crests.? After the administration of intravenous contrast, 2.5 mm thick sections again acquired from the lung apices to the iliac crests.? Maximum intensity projection (MIP) oblique sagittal and coronal reformats were then acquired.? For radiation dose reduction, the following was used:? automated exposure control.? ? COMPARISON:? None. ? FINDINGS:? Image quality:? Excellent.? ? AORTA:? Intramural hematoma:? Absent Maximum hematoma thickness:? Not applicable.? Focal contrast enhancement:? Intramural blood pool (< 2 mm neck or imperceptible communication with aortic lumen):? Absent .? Ulcer-like projection (broad communication with aortic lumen > 3 mm):? Absent . ? Dissection:? Absent Viktor classification:? Not applicable Maximum aortic diameter:? Normal caliber Periaortic hematoma:? Absent .? ? CHEST:? Lungs and pleura:? No acute airspace opacities.? No pleural effusions or pneumothorax.? Central and peripheral airways are patent and normal in caliber.? No pulmonary embolus found. ? Mediastinum:? Heart size is normal.? No pericardial effusion.? No mediastinal or hilar adenopathy by size criteria.? Central pulmonary arteries are normal in size.? Esophagus is normal in caliber.? No hiatal hernias.? ? Bones and chest wall:? No axillary adenopathy by size criteria.? Thyroid gland normal .? No suspicious bony lesions.? No vertebral body compression fractures.? ? ? ABDOMEN:? Vasculature:? Celiac trunk and mesenteric arteries are patent.? Renal arteries are also patent.? ? Solid organs:? Liver is normal in size and enhancement.? Gallbladder normal .? Biliary system is non dilated.? Pancreas enhances normally.? Spleen is normal in size and enhancement.? No adrenal nodules.? Both kidneys are normal in size and enhancement, without hydronephrosis.? ? Peritoneum and bowel:? No free fluid or air.? Bowel loops are normal in caliber and wall thickness.? ? Nodes and vessels:? No retroperitoneal or mesenteric adenopathy by size criteria.? Inferior vena cava is normal in morphology.? ? Miscellaneous:? No ventral hernias.? ? ? PELVIS:? Genitourinary:? Bladder wall thickness is normal.? ? Miscellaneous:? No inguinal hernias or adenopathy.? No ventral hernias.? Normal appendix found right lower quadrant. ? Bones:? No suspicious bony lesions.? No vertebral body compression fractures.? ? ? IMPRESSION:? No aneurysm or dissection found, normal aortic caliber and enhancement.? No evidence of pulmonary embolus.? Normal appendix found. ? ? ? Dictated by: Fidencio Fall M.D. on 07/30/2022 at 21:42 ? ? Approved by: Fidencio Fall M.D. on 07/30/2022 at 21:46?? ECG Data Attestation: I personally reviewed and interpreted this ECG as follows: Prior ECG tracings: not available for review Interpretation: Normal sinus rhythm rate of 62 KS 154, QRS of 86, QTC 428. Patient has depression in lead 3 but not [address] and [address] No other ST changes appreciated. No priors for comparison. MDM Narrative Medical decision making narrative: This is a 37-year-old male who presents with complaint of periumbilical and right lower quadrant abdominal pain that has been present for almost 24 hours. He is had shaking chills, nausea vomiting and profuse diarrhea that has been watery without black or blood. No flank or urinary symptoms, no testicular pain. He and his state he passed out at least once, he was throwing up and then woke up on the floor. Patient has had prior abdominal pain he states sort of similar but did not have the vomiting and diarrhea. He has had colonoscopy x2 which he states did not have any findings and was told he might have IBS. Because the patient's reported syncopal episode dissection protocol was obtained for chest abdomen pelvis. He does not have any chest pain or shortness of breath. On examination patient is tender in the right lower quadrant. No bruit he has good perfusion to both legs with normal pulses and cap refill and no color change. Labs, EKG and imaging show white count of neutrophils are 86%, electrolytes are normal renal function, is normal, glucose is 110 with normal. Lactate shows ketones but no other changes. Patient had quite a bit of abdominal pain which he has had in the past but had 1 syncopal episode possibly to according to him and his family so CT dissection protocol was obtained and does not show any acute change, shows normal bowel and appendix as well with no vascular abnormalities. Patient was able to make a stool sample here in the department in his positive for norovirus. Patient has not had any persistent vomiting in the department. He was quite painful had additional dose of medication Dilaudid was not as helpful and morphine was actually much more effective. Patient on recheck is feeling improved. No vomiting in department. Vitals appropriate. Patient feels comfortable to return home. Plan for zofran prepack and small prepack of narcotic pain medication. Reviewed return precautions with patient and family. Patient and both express understanding. Discharge Plan Departure Patient Disposition: Home Clinical Impression: Infection due to Norovirus species, Abdominal pain, vomiting, and diarrhea Instructions: DI for Norovirus Infection Activity Restrictions/Additional Instructions: You have tested positive for norovirus today. This is a viral illness that often cause vomiting and diarrhea. It typically resolves in a few days to a week. You can take Zofran 1 tablet every 6 hours as needed for nausea. You may start with small sips of water in the morning and then advance to larger amounts of fluid. If tolerating then you can add bland, soft foods and advance as tolerated. You can take narcotic pain medication 1 tablet every 4-6 hours as needed. This medication can make you sleepy do not drive, perform hazardous activities or make any major decisions while taking it. This medication will make you constipated please take a stool softener once to twice daily until stools are soft and regular. Please return for persistent vomiting, signs of dehydration, recurrent episodes of passing out, new chest pain or shortness of breath, uncontrolled abdominal pain black or bloody stools or other new or concerning changes. Prescriptions: No Action cyclobenzaprine 10 MG tablet 10 mg PO TIDP PRNQty: 14 0RF ibuprofen 600 MG tablet 600 mg PO Q8HP PRNQty: 20 0RF hydrocodone-acetaminophen 5 MG/325 MG tablet 0 tab PO Q6HP PRN (Reason: Pain (Scale Score 1-3)) ondansetron 4 mg tablet,disintegrating 4 mg PO QID PRN (Reason: nausea and vomiting) Qty: 14 0RF oxycodone-acetaminophen 5-325 mg tablet 1 tab PO Q4-6H PRN (Reason: pain) Qty: 7 0RF Referrals: Gavin Boateng MD [Primary Care Provider] - Stand Alone Forms: Patient Portal/API
[2022-07-30 20:41] LABS: Add Manual Diff / Slide Review NO; Basophils Absolute Auto 100 /uL (0-100); Basophils Percent Auto 0.5 % (0-2); Eosinophils Absolute Auto 0 /uL (0-450); Eosinophils Percent Auto 0.1 % (2-4); Hematocrit 47.9 % (41-53); Hemoglobin 16.6 g/dL (13.5-17.5); Lymphocytes Absolute Auto 1000 /uL (1100-4500); Lymphocytes Percent Auto 8.2 % (25-40); Mean Corpuscular HGB Conc 34.5 % (30-36); Mean Corpuscular Volume 84.1 fL (80-100); Monocytes Absolute Auto 600 /uL (0-900); Monocytes Percent Auto 5.2 % (3-14); Neutrophils Absolute Auto 10500 /uL (1500-7000); Platelet Count 183 X10^3/uL (150-400); Red Cell Distribution Width 13.3 % (11.6-14.8); White Blood Cell Count 12.2 X10^3/uL (4.5-11.0)
[2022-07-30] MEDS: MORPHINE 4 MG/ML INJ IV ×2 (20:43→22:44)
[2022-07-30] MEDS: ONDANSETRON 4 MG/2 ML INJ IV (20:44)
[2022-07-30 20:54] LABS: Alanine Aminotransferase 37 IU/L (<50); Albumin 4.9 g/dL (3.5-5.0); Albumin Globulin Ratio 1.3 (1.0-2.8); Alkaline Phosphatase 81 U/L (38-126); Aspartate Aminotransferase 32 IU/L (17-59); BUN Creatinine Ratio 11.3 (6-22); Bilirubin Total 1.2 mg/dL (0.2-1.3); Blood Urea Nitrogen 14 mg/dL (9-20); Calcium 9.6 mg/dL (8.4-10.2); Carbon Dioxide 27 mmol/L (22-32); Chloride 101 mmol/L (98-107); Estimated Glomerular Filt Rate > 60 mL/min (>60); Globulin 3.8 g/dL (1.7-4.1); Glucose 110 mg/dL (70-100); HEMOLYSIS < 15 (0-50); Lipase 83 U/L (23-300); Potassium 3.6 mmol/L (3.4-5.1); Sodium 139 mmol/L (137-145); Total Protein 8.7 g/dL (6.3-8.2)
[2022-07-30] MEDS: SODIUM CHLORIDE 0.9% 1,000 ML 1000 ML IV ×2 (21:14→22:20)
[2022-07-30 21:34] LABS: Creatine Kinase 153 U/L (55-170); Lactate (Lactic Acid) 1.5 mmol/L (0.7-2.1)
[2022-07-30 21:44] LABS: Appearance Urine UA CLEAR; Bilirubin Urine UA NEGATIVE (NEGATIVE); Color Urine UA YELLOW; Glucose Urine UA NEGATIVE (Negative); Ketones Urine UA TRACE (NEGATIVE); Leukocyte Esterase Urine UA NEGATIVE (NEGATIVE); Nitrite Urine UA NEGATIVE (Negative); Occult Blood Urine UA NEGATIVE (Negative); Protein Urine UA NEGATIVE (Negative); Urobilinogen Urine UA 0.2 E.U./dL (0.2); pH Urine UA 6.5 (4.5-8.0)
[2022-07-30 21:47] LABS: Troponin I < 0.012 ng/mL (0.01-0.034)
[2022-07-30 21:49] LABS: CKMB % Relative Index 0.2 % (1.5-5.0); Creatine Kinase MB 0.28 ng/mL (<2.37)
[2022-07-30 21:59] LABS: Bacteria Urine None Seen; Culture Indicated Urine Cult Not Indicated; RBC Urine None Seen (0-5/HPF); Urine Comments Microscopic Normal; WBC Urine None Seen (0-5/HPF)
[2022-07-30] MEDS: HYDROMORPHONE 0.5 MG INJ IV (22:19)
--- NOTE | 2022-07-30 22:28 | PC.NURSE ---
patient was able to walk to the bathroom to deficate. sample taken and sent to the lab. Patient continues to have sharp pain in his abdomen which appeared to worsen following the bathroom visit
[2022-07-30 23:36] LABS: Adenovirus F 40/41 Not Detected (Not Detect); Astrovirus Not Detected (Not Detect); Campylobacter Not Detected (Not Detect); Clostridium difficile toxin AB Not Detected (Not Detect); Cryptosporidium Not Detected (Not Detect); Cyclospora cayetanensis Not Detected (Not Detect); Entamoeba histolytica Not Detected (Not Detect); Enteroaggregative E.coli Not Detected (Not Detect); Enteropathogenic E.coli Not Detected (Not Detect); Enterotoxigenic E.coli It/st Not Detected (Not Detect); Giardia lamblia Not Detected (Not Detect); Plesiomonsa shigelloides Not Detected (Not Detect); Salmonella Not Detected (Not Detect); Shiga-like toxin-prod E.coli Not Detected (Not Detect); Shigella/Enteroinvasive E.coli Not Detected (Not Detect); Vibrio Not Detected (Not Detect); Vibrio cholerae Not Detected (Not Detect); Yersinia enterocolitica Not Detected (Not Detect)
[2022-07-30 23:37] LABS: Norovirus GI/GII Detected (Not Detect); Rotavirus A Not Detected (Not Detect); Sapovirus Not Detected (Not Detect)
[2022-07-31] MEDS: ONDANSETRON 4 MG ODT PREPACK 1 BOTTLE MISC (00:07)
[2022-07-31] MEDS: OXYCODONE/APAP 5/325 PREPACK 1 BOTTLE MISC (00:07)
[2022-07-31 00:14] VITALS: BP 126/76; PULSE 59; RESP 18; O2SAT 96
== END 2022-07-31 00:14 | disposition home or self-care (01) ==
PROVIDERS: Emergency Provider Emergency Medicine; PCP Family Medicine
DX: A08.11 Acute gastroenteropathy due to Norwalk agent (principal)
CPT/HCPCS: 36415; 71275; 74174; 80053; 81001; 81003; 82550; 82553; 83605; 83690; 84484; 85025; 87507; 93005; 93010; 96374; 96375; 96376; 99284; J1170; J2270; J2405; Q9967

== ENCOUNTER → 2023-04-21 13:35 | Outpatient (CLI) | payer OTHER, SELFPAY ==
--- NOTE | 2023-04-21 13:37 | DI.MRI.S_ITS ---
PROCEDURE: MR ANKLE LT WO CON INDICATIONS: Pain in left ankle and joints of left foot TECHNIQUE: Noncontrast sagittal T1 spin echo and T2 fast spin echo with fat saturation, axial proton density fast spin echo and T2 fast spin echo with fat saturation, coronal T1 spin echo and T2 fast spin echo with fat saturation through the ankle/hindfoot. COMPARISON: [facility], CR, XR ANKLE 3 VIEWS WEIGHT BEARING LEFT, 04/11/2023, 9:00. FINDINGS: Image quality: Excellent. Bones and joints: No bone marrow contusions or fractures. No hindfoot coalitions. No osteochondral injuries of the talar dome. Minimal degenerative spurring at the dorsal aspect of the talonavicular joint. Mild soft tissue edema is seen at the medial aspect of the ankle. Medial structures: Nonedematous osseous irregularity is seen at the distal tip of the medial malleolus and the deep deltoid ligament fibers appear mildly heterogeneous hyperintense, consistent with a remote prior grade 2 sprain. The spring ligament components are intact. Mild posterior tibialis tenosynovitis. The flexor digitorum longus and flexor hallucis longus tendons are intact. The posterior tibial neurovascular bundle appears normal within the tarsal tunnel, without extrinsic mass effect. Lateral structures: Remote prior low-grade sprains of the anterior talofibular ligament and the calcaneofibular ligament. The posterior talofibular ligament is intact. The anterior and posterior tibiofibular ligaments appear intact. Partial longitudinal split tearing of the peroneus brevis tendon at the level of the distal fibula with distal tendon reconstitution at the level of a mildly prominent nonedematous peroneal tubercle. Findings are superimposed on [id number] peroneus brevis and longus tendinosis and tenosynovitis. Ganglion cyst extending superiorly from the lateral sinus tarsi measures up to 16 x 6 x 14 mm. Anterior structures: The tibialis anterior, extensor hallucis longus, and extensor digitorum longus tendons appear intact. Posterior and plantar structures: Mild Achilles tendinosis. The proximal plantar fascia is intact. No abductor digiti quinti muscle atrophy to suggest Romero neuropathy. IMPRESSION: 1. Remote prior grade 2 sprain of the deltoid ligament. Mild adjacent nonedematous osseous irregularity at the medial malleolar tip may indicate a prior healed partial avulsion injury. 2. Mild distal posterior tibialis tenosynovitis. 3. 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 [id number] peroneus brevis and longus tendinosis and tenosynovitis. 4. Remote prior low-grade sprains of the anterior talofibular ligament and the calcaneofibular ligament. 5. Mild Achilles tendinosis. 6. Small ganglion cyst extending superiorly from the lateral sinus tarsi measures up to 16 mm in maximum dimension. Approved by: Juan Alberto Gillis M.D. on 04/24/2023 at 9:14
== END ==
LOC: MRI 13:36
PROVIDERS: PCP Family Medicine; Referring Provider Orthopaedic Surgery Foot and Ankle Surgery; Visit Provider Orthopaedic Surgery Foot and Ankle Surgery
DX: S93.422A Sprain of deltoid ligament of left ankle, initial encounter (principal); S93.492A Sprain of other ligament of left ankle, initial encounter; S93.412A Sprain of calcaneofibular ligament of left ankle, initial encounter; M65.862 Other synovitis and tenosynovitis, left lower leg; M67.472 Ganglion, left ankle and foot; M25.572 Pain in left ankle and joints of left foot
CPT/HCPCS: 73721

== ENCOUNTER → 2024-12-27 09:07 | Outpatient (CLI) | payer OTHER, SELFPAY ==
[2024-12-27 09:57] LABS: Add Manual Diff / Slide Review NO; Hematocrit 45.0 % (41-53); Hemoglobin 15.9 g/dL (13.5-17.5); Lymphocytes Absolute Auto 1500 /uL (1100-4500); Mean Corpuscular HGB Conc 35.3 % (30-36); Mean Corpuscular Hemoglobin 30.0 PG (26-34); Mean Corpuscular Volume 84.9 fL (80-100); Platelet Count 163 X10^3/uL (150-400)
[2024-12-27 09:58] LABS: Hemoglobin A1C% w Est Avg Glu 5.3 % (4.0-6.0)
[2024-12-27 10:08] LABS: Alanine Aminotransferase 34 IU/L (<50); Albumin 4.8 g/dL (3.5-5.0); Albumin Globulin Ratio 1.5 (1.0-2.8); Alkaline Phosphatase 69 U/L (38-126); Blood Urea Nitrogen 11 mg/dL (9-20); Calcium 9.5 mg/dL (8.4-10.2); Carbon Dioxide 26 mmol/L (22-32); Chloride 102 mmol/L (98-107); Cholesterol 254 mg/dL (140-199); Estimated Glomerular Filt Rate > 60 mL/min (>60); Globulin 3.2 g/dL (1.7-4.1); Glucose 101 mg/dL (70-99); HDL Cholesterol 41 mg/dL (40-60); HEMOLYSIS < 15 (0-50); Potassium 4.2 mmol/L (3.4-5.1); Sodium 138 mmol/L (137-145); Total Protein 8.0 g/dL (6.3-8.2); Triglycerides 321 mg/dL (35-150)
[2024-12-27 10:56] LABS: TSH w/ Reflex to FT4 1.39 uIU/mL (0.47-4.68)
== END ==
PROVIDERS: PCP Family Medicine; Referring Provider Family Medicine; Visit Provider Family Medicine
DX: K58.9 Irritable bowel syndrome, unspecified (principal); Z83.3 Family history of diabetes mellitus; Z82.69 Family history of other diseases of the musculoskeletal system and connective tissue; Z68.34 Body mass index [BMI] 34.0-34.9, adult; Z13.228 Encounter for screening for other metabolic disorders; M25.50 Pain in unspecified joint
CPT/HCPCS: 36415; 80053; 80061; 83036; 84443; 85025; 85651

== ENCOUNTER → 2025-01-08 09:43 | Outpatient (CLI) | payer OTHER, SELFPAY | PROVIDERS: PCP Family Medicine; Referring Provider Family Medicine; Visit Provider Family Medicine | DX: E78.1 Pure hyperglyceridemia (principal); Z83.3 Family history of diabetes mellitus; Z82.69 Family history of other diseases of the musculoskeletal system and connective tissue; Z68.34 Body mass index [BMI] 34.0-34.9, adult; Z86.59 Personal history of other mental and behavioral disorders; M25.50 Pain in unspecified joint; N64.4 Mastodynia; R53.83 Other fatigue | CPT/HCPCS: 36415; 84146; 84402; 84403; 86038; 86430 ==

== ENCOUNTER → 2025-01-28 09:14 | Outpatient (CLI) | payer OTHER, SELFPAY ==
[2025-02-02 11:10] LABS: Percent Free Testosterone 3.74 % (1.50-4.20)
== END ==
PROVIDERS: PCP Family Medicine; Referring Provider Family Medicine; Visit Provider Family Medicine
DX: R53.83 Other fatigue (principal); R79.89 Other specified abnormal findings of blood chemistry
CPT/HCPCS: 36415; 84402; 84403

== ENCOUNTER → 2025-02-07 09:12 | Outpatient (CLI) | payer OTHER, SELFPAY ==
--- NOTE | 2025-02-07 09:13 | DI.US.S_ITS ---
MM diagnostic mammo BI, US breast BI limited: 02/07/2025 BI-RADS: 2 CLINICAL: 39-year old male for bilateral diagnostic mammogram and bilateral diagnostic breast ultrasound. No personal or first-degree family history of breast cancer. The patient reports pain and palpable abnormality (3 months) in both breasts. PRIOR EXAMS No prior examinations available. MAMMOGRAPHY TECHNIQUE: 2D and 3D (tomosynthesis) digital mammographic views obtained, with additional images as needed for full coverage. Current study was also evaluated with a Computer Aided Detection (CAD) system. ULTRASOUND TECHNIQUE Real-time marlow scale imaging of the area of clinical interest was performed with image documentation. TARGETED Bilateral Breast Ultrasound: Real-time ultrasound exam was performed focused to area of clinical and/or imaging concern. DENSITY B. There are scattered areas of fibroglandular density. MAMMOGRAPHY FINDINGS Bilateral: There is marked dendritic pattern gynecomastia. This correlates with the patient's reported symptoms of retroareolar pain and palpable abnormality. There are no suspicious masses, calcifications, or other findings in the breast. ULTRASOUND FINDINGS Right: Central, Retroareolar: Correlating with palpable lump and pain/tenderness and also with findings on mammogram there is retroareolar fibroglandular tissue consistent with gynecomastia. Left: Central, Retroareolar: Correlating with palpable lump and pain/tenderness and also with findings on mammogram there is retroareolar fibroglandular tissue consistent with gynecomastia. IMPRESSION: * No evidence of malignancy with benign findings. RECOMMENDATIONS Bilateral * Clinical follow up is recommended for the patient's gynecomastia, with evaluation for etiologies including medication/drug-related factors, hormonal or systemic disorders. COMMENTS: Findings and recommendations were conveyed to the patient during today's evaluation. OVERALL ASSESSMENT CATEGORY BI-RADS-2: Benign. ELECTRONICALLY SIGNED: Alka Moreno M.D. on 02/07/2025 at 10:46:58 AM PT Interpreting Station ID: [id number]
== END ==
LOC: MAMMO 09:12
PROVIDERS: PCP Family Medicine; Referring Provider Family Medicine; Visit Provider Family Medicine
DX: N64.4 Mastodynia (principal)
CPT/HCPCS: 76642; 77066; G0279

== ENCOUNTER → 2025-02-14 11:11 | Outpatient (CLI) | payer OTHER, SELFPAY ==
[2025-02-14 12:43] LABS: HEMOLYSIS < 15 (0-50); Iron 88 ug/dL (49-181)
[2025-02-14 12:55] LABS: Percent Iron Saturation 28 % (20-50); Total Iron Binding Capacity 313 ug/dL (261-462); Transferrin 283 mg/dL (206-381)
[2025-02-14 12:59] LABS: HCG Quantitative /Beta subunit < 2.39 mIU/mL (<2.40)
[2025-02-14 13:03] LABS: Free T4, Direct Thyroxine 0.95 ng/dL (0.78-2.19)
[2025-02-14 13:14] LABS: Cortisol AM (Before 10AM) 6.02 ug/dL (4.46-22.7)
[2025-02-14 15:56] LABS: Follicle Stimulating Hormone 3.99 mIU/mL
[2025-02-14 16:11] LABS: Estradiol, Total 27.4 pg/mL
[2025-02-15 19:05] LABS: HIV 1 & 2 Ab/Ag 4th Gen Combo NEGATIVE (NEGATIVE)
== END ==
PROVIDERS: PCP Family Medicine; Referring Provider Family Medicine; Visit Provider Family Medicine
DX: N62 Hypertrophy of breast (principal); M25.50 Pain in unspecified joint; N64.4 Mastodynia; Z68.34 Body mass index [BMI] 34.0-34.9, adult; E78.1 Pure hyperglyceridemia; Z82.69 Family history of other diseases of the musculoskeletal system and connective tissue; Z83.3 Family history of diabetes mellitus; R79.89 Other specified abnormal findings of blood chemistry
CPT/HCPCS: 36415; 82533; 82670; 83001; 83002; 83540; 83550; 84439; 84702; 87389